=== PATIENT | male | born 1985 | race Caucasian/White ===

== ENCOUNTER → 2019-12-15 | Outpatient (CLI) | payer OTHER | LOC: RAD 11:37 | PROVIDERS: ATTEND Internal Medicine | DX: M43.07 Spondylolysis, lumbosacral region (principal) | CPT/HCPCS: 72110 ==

== ENCOUNTER → 2022-06-17 | Day surgery (SDC) | payer BC, OTHER ==
[~2022-06-17] MED LIST: BUPIVACAINE 0.25% 30ML SDV ONE; DEXAMETHASONE SOD PHOS INJ 4 MG/ML SDV ONE; FENTANYL CITRATE/PF 100MCG/2 ML INJ ONE; FLINTSTONES T100 MCG; HYDROCODON-ACE1 EA12 PO; IBUPROFEN200 MG PO; KETOROLAC TROMETHAMINE 30 MG/ML VIAL ONE; LACTATED RINGER'S 1,000 ML ONE; LIDOCAINE 1% W/EPINEPHRINE 20 ML VIAL ONE; LIDOCAINE HCL 2% LOCAL INJ 5 ML SDV VIAL INJ ONE; MIDAZOLAM HCL 2 MG/2 ML VIAL ONE; MULTI-VITAMIN1 EACH PO; MUTLIVITAMIN; ONDANSETRON HCL INJ 2MG/ML 2ML 2 MG/ML VIAL ONE; POVIDONE IODINE 0.05% 0.05 % ML PO ONE; PROPOFOL IV EMULSION 10 MG/ML 20 ML VIAL ONE; SEVOFLURANE INHAL SOLN 250 ML PEN BTL ONE
[2022-06-17 10:55] VITALS: BP 128/60
== END | disposition home or self-care (01) ==
LOC: OR 06:16
PROVIDERS: ATTEND Surgery
DX: K40.90 Unilateral inguinal hernia, without obstruction or gangrene, not specified as recurrent (principal); D17.6 Benign lipomatous neoplasm of spermatic cord; Z88.0 Allergy status to penicillin; Z79.1 Long term (current) use of non-steroidal anti-inflammatories (NSAID)
CPT/HCPCS: 49505; C1781; J1100; J1885; J2001; J2250; J2405; J2704; J3010; J7121

== ENCOUNTER 2024-11-22 17:47 | Inpatient (IN) | payer BC, OTHER ==
[~2024-11-22] VITALS: Ht 188 cm; Wt 83.5 kg
[~2024-11-22 17:47] MED LIST changes: -BUPIVACAINE 0.25% 30ML SDV ONE; -DEXAMETHASONE SOD PHOS INJ 4 MG/ML SDV ONE; -FENTANYL CITRATE/PF 100MCG/2 ML INJ ONE; -KETOROLAC TROMETHAMINE 30 MG/ML VIAL ONE; -LACTATED RINGER'S 1,000 ML ONE; -LIDOCAINE 1% W/EPINEPHRINE 20 ML VIAL ONE; -LIDOCAINE HCL 2% LOCAL INJ 5 ML SDV VIAL INJ ONE; -MIDAZOLAM HCL 2 MG/2 ML VIAL ONE; -ONDANSETRON HCL INJ 2MG/ML 2ML 2 MG/ML VIAL ONE; -POVIDONE IODINE 0.05% 0.05 % ML PO ONE; -PROPOFOL IV EMULSION 10 MG/ML 20 ML VIAL ONE; -SEVOFLURANE INHAL SOLN 250 ML PEN BTL ONE
[2024-11-22] MEDS: KETOROLAC TROMETHAMINE 30 MG/ML VIAL IV ONE (19:42)
[2024-11-22] MEDS: LACTATED RINGER'S 1,000 ML INJ ONE (19:43)
[2024-11-22] MEDS ORDERED: IOPAMIDOL 370 MG/ML 100 ML INFUS..BTL INJ ONE (20:29)
[2024-11-22] MEDS ORDERED: SODIUM CHLORIDE 0.9% 100 ML ONE (20:29)
[2024-11-22 21:49] VITALS: PULSE 68; RESP 16; TEMP 98.3
[2024-11-22 22:30] VITALS: BP 135/87; PULSE 58; RESP 16; TEMP 98; O2SAT 99
[2024-11-22] MEDS: ACETAMINOPHEN 325 MG TAB PO PRN (22:51)
[2024-11-22 23:00] VITALS: BP 135/87; PULSE 58; RESP 16; TEMP 98; O2SAT 99
[2024-11-22] MEDS ORDERED: HYDRALAZINE HCL 25 MG TAB PO PRN (23:30)
[2024-11-22] MEDS ORDERED: ONDANSETRON HCL INJ 2MG/ML 2ML 2 MG/ML VIAL IV PRN (23:30)
[2024-11-23 04:00] VITALS: BP 119/82; PULSE 57; RESP 16; TEMP 97.8; O2SAT 100
[2024-11-23 05:46] LABS: BASOPHILS % 0.4 % (0.0-1.0); EOSINOPHILS % 0.5 % (0.0-6.0); LYMPHOCYTES % 13.3 % (18.0-39.1); MONOCYTES % 7.1 % (4.4-11.3); NEUTROPHILS % 78.4 % (38.7-80.0); RED CELL DISTRIBUTION WIDTH 12.5 % (11.7-14.4)
[2024-11-23 06:18] LABS: CHOL/HDL RATIO 3.4 (3.9-4.7); EST GLOMERULAR FILTRATION RATE 102.0 ML/MIN (>=60); LDL CHOLESTEROL 90.0 MG/DL (60-130)
[2024-11-23 08:00] VITALS: BP 125/79; PULSE 84; RESP 16; TEMP 98.4; O2SAT 97
[2024-11-23 09:00] VITALS: BP 125/79; PULSE 84; RESP 16; TEMP 98.4; O2SAT 97
[2024-11-23] MEDS: LIDOCAINE 4% PATCH TP SCH (09:53)
[2024-11-23] MEDS: CELECOXIB 200 MG CAP PO SCH (09:53)
[2024-11-23] MEDS: KETOROLAC TROMETHAMINE 30 MG/ML VIAL IV PRN (10:50)
[2024-11-23] MEDS: GABAPENTIN 100 MG CAP PO PRN (10:50)
[2024-11-23 12:00] VITALS: BP 119/79; PULSE 78; RESP 18; TEMP 98.6; O2SAT 97
[2024-11-23 16:00] VITALS: BP 123/89; PULSE 57; RESP 18; TEMP 99.1; O2SAT 97
[2024-11-23 20:00] VITALS: BP 124/83; PULSE 60; RESP 16; TEMP 99.4; O2SAT 98
[2024-11-24] VITALS (8 sets, daily range): BP systolic 105–133; BP diastolic 67–95; PULSE 53–77; RESP 16–18; TEMP 98.2–99.7; O2SAT 96–99
[2024-11-24 05:26] LABS: BASOPHILS % 0.8 % (0.0-1.0); EOSINOPHILS % 4.3 % (0.0-6.0); LYMPHOCYTES % 20.2 % (18.0-39.1); MONOCYTES % 7.7 % (4.4-11.3); NEUTROPHILS % 66.5 % (38.7-80.0); RED CELL DISTRIBUTION WIDTH 12.6 % (11.7-14.4)
[2024-11-24 05:53] LABS: EST GLOMERULAR FILTRATION RATE 96.0 ML/MIN (>=60)
[2024-11-24] MEDS ORDERED: THIAMINE HCL INJ 100 MG/ML 2ML VIAL IV SCH (09:00)
[2024-11-24] MEDS: SODIUM CHLORIDE 0.9% 1000ML 1,000 ML IV SCH (09:10)
[2024-11-24] MEDS ORDERED: GADOBENATE DIMEGLUMINE 1 ML IV ONE (10:10)
[2024-11-25] VITALS (7 sets, daily range): BP systolic 109–128; BP diastolic 73–86; PULSE 57–78; RESP 16–20; TEMP 97.7–98.9; O2SAT 97–100
[2024-11-25 05:57] LABS: EST GLOMERULAR FILTRATION RATE 111.0 ML/MIN (>=60)
[2024-11-26 04:00] VITALS: BP 102/56; PULSE 91; RESP 18; TEMP 97.6; O2SAT 98
[2024-11-26 08:00] VITALS: BP 123/77; PULSE 57; RESP 18; TEMP 97.8; O2SAT 100
[2024-11-26] MEDS: OXCARBAZEPINE 300 MG TAB PO SCH (10:26)
[2024-11-30 15:24] LABS: CK-BB 0; CK-MB 0; CREATINE KINASE TOTAL 4740
== END 2024-11-26 10:38 | disposition home or self-care (01) | DRG 101 ==
LOC: FSED 18:01 → ERHOLD 20:11 → MED/SURG 22:08
PROVIDERS: ADMIT Internal Medicine; ATTEND Internal Medicine
DX: G40.89 Other seizures (principal); R00.1 Bradycardia, unspecified; I49.1 Atrial premature depolarization; R55 Syncope and collapse; D72.828 Other elevated white blood cell count; S00.83XA Contusion of other part of head, initial encounter; S80.01XA Contusion of right knee, initial encounter; S40.012A Contusion of left shoulder, initial encounter; S01.552A Open bite of oral cavity, initial encounter; W19.XXXA Unspecified fall, initial encounter; Y92.002 Bathroom of unspecified non-institutional (private) residence as the place of occurrence of the external cause; Z71.81 Spiritual or religious counseling
CPT/HCPCS: 36415; 70450; 70553; 71260; 72125; 80048; 80053; 80061; 81003; 82550; 82552; 82948; 83735; 84443; 84484; 85025; 93005; 93306; 93880; 95812; 96374; 99284; J1885; J3411; J7030; J7050; Q9967